=== PATIENT | male | born 1955 | race Caucasian/White ===

== ENCOUNTER 2017-05-09 08:21 | Day surgery (SDC) | payer BC ==
[~2017-05-09 08:21] MED LIST: Lidocaine 1%/Sod Bicarbonate in NS 8.4% 1 ML Syringe PRN; Sodium Chloride 0.9% 10 ML Syringe FLUSH PRN
[2017-05-09] MEDS: Lactated Ringers 1,000 ML IV SCH ×3 (08:50→15:07)
[2017-05-09] MEDS ORDERED: fentaNYL 250 MCG/5 ML SDV ONE (08:53)
[2017-05-09] MEDS ORDERED: Propofol 200 MG/20 ML SDV ONE (08:53)
[2017-05-09] MEDS ORDERED: Lidocaine 1% 6 ML ONE (08:56)
[2017-05-09] MEDS ORDERED: ceFAZolin 1 GM Vial ONE (08:56)
--- NOTE | 2017-05-09 10:00 | PCM.HP ---
H&P History of Present Illness - General Date of Service: 05/09/17 Source of Information: Patient History Limitations: Reports: No Limitations - History of Present Illness Initial Comments - Free Text/Narative: 62 yo M presents for lap umbilical hernia repair, possible inguinal hernia repair. Last seen in office on 04/07. No changes in his health since that time. No questions or concerns. Here w/ . Nausea with oral pain meds after last surgery. - Related Data Allergies/Adverse Reactions: Allergies Allergy/AdvReac Type Severity Reaction Status Date / Time No Known Allergies Allergy Verified 05/06/17 13:02 Home Medications: Home Meds Aspirin 162 mg PO DAILY 05/06/17 [History] Beta-Carotene(A) w/C & E/Min [Prosight] 1 tab PO DAILY 05/06/17 [History] Metoprolol Succinate [Metoprolol Succinate] 12.5 mg PO DAILY 05/06/17 [History] Multivitamin [Multivitamins] 1 tab PO DAILY 05/06/17 [History] Naproxen 500 mg PO BID 05/06/17 [History] Nitroglycerin [IJP: Nitroglycerin] 0.4 mg SL ASDIRECTED PRN 05/06/17 [History] Pantoprazole Sodium [Pantoprazole Sodium] 40 mg PO DAILY 05/06/17 [History] Ubidecarenone [Coq-10] 100 mg PO DAILY 05/06/17 [History] amLODIPine Besylate [Amlodipine Besylate] 2.5 mg PO DAILY 05/06/17 [History] atorvaSTATin Calcium [Atorvastatin Calcium] 80 mg PO DAILY 05/06/17 [History] Past Medical History Cardiovascular History: Reports: CAD, Hypertension, Stents Respiratory History: Reports: Sleep Apnea Gastrointestinal History: Reports: Colon Polyp, Other (See Below) Other Gastrointestinal History: umbilical hernia, heartburn [employer] History: Reports: None Neurological History: Reports: None Psychiatric History: Reports: None Endocrine/Metabolic History: Reports: None Hematologic History: Reports: None Immunologic History: Reports: None Oncologic (Cancer) History: Reports: None Dermatologic History: Reports: None - Past Surgical History Head Surgeries/Procedures: Reports: None HEENT Surgical History: Reports: Oral Surgery Cardiovascular Surgical History: Reports: Other (See Below) Other Cardiovascular Surgeries/Procedures: PCI GI Surgical History: Reports: Colonoscopy, EGD Musculoskeletal Surgical History: Reports: Other (See Below) Other Musculoskeletal Surgeries/Procedures:: R index finger surgery Social & Family History - Tobacco Use Smoking Status *Q: Never Smoker - Recreational Drug Use Recreational Drug Use: No Drug Use in Last 12 Months: No H&P Review of Systems - Review of Systems: Review Of Systems: ROS reveals no pertinent complaints other than HPI. Exam - Exam Exam: See Below - Vital Signs Vital Signs: Last Vital Signs Temp 97.5 F 05/09/17 08:30 Pulse 61 05/09/17 08:30 Resp 18 05/09/17 08:30 BP 156/64 H 05/09/17 08:30 Pulse Ox 97 05/09/17 08:30 Weight: 242 lb - Exam General: Alert, Oriented, Cooperative HEENT: Conjunctiva Clear. No: Scleral Icterus Lungs: Normal Respiratory Effort Cardiovascular: Regular Rate Abdomen: Soft, Hernia (Umbilical - reducible). No: Distention, Guarding, Rigidity, Rebound Skin: Warm, Dry, Intact Neurological: Cranial Nerves Intact, Normal Speech Neuro Extensive - Mental Status: Alert, Oriented x3, Normal Mood/Affect, Normal Cognition Psychiatric: Alert, Normal Affect, Normal Mood - Patient Data Lab Results Last 24 hrs: Laboratory Results - last 24 hr 05/09/17 05/09/17 Range/Units 08:57 08:57 WBC 5.75 (4.23-9.07) K/mm3 RBC 5.03 (4.63-6.08) M/mm3 Hgb 14.9 (13.7-17.5) gm/L Hct 43.3 (40.1-51.0) % MCV 86.1 (79.0-92.2) fl MCH 29.6 (25.7-32.2) pg MCHC 34.4 (32.2-35.5) g/dl RDW Std Deviation 41.2 (35.1-43.9) fL Plt Count 178 (163-337) K/mm3 MPV 9.6 (9.4-12.3) fl Neut % (Auto) 55.7 (34.0-67.9) % Lymph % (Auto) 30.6 (21.8-53.1) % Foster % (Auto) 9.7 (5.3-12.2) % Eos % (Auto) 3.1 (0.8-7.0) Baso % (Auto) 0.7 (0.1-1.2) % Neut # (Auto) 3.20 (1.78-5.38) K/mm3 Lymph # (Auto) 1.76 (1.32-3.57) K/mm3 Foster # (Auto) 0.56 (0.30-0.82) K/mm3 Eos # (Auto) 0.18 (0.04-0.54) K/mm3 Baso # (Auto) 0.04 (0.01-0.08) K/mm3 Sodium 141 (136-145) mEq/L Potassium 3.9 (3.5-5.1) mEq/L Chloride 104 (98-107) mEq/L Carbon Dioxide 26 (21-32) mEq/L Anion Gap 14.9 (5-15) BUN 14 (7-18) mg/dL Creatinine 1.1 (0.7-1.3) mg/dL Est Cr Clr Drug Dosing 77.68 mL/min Estimated GFR (MDRD) > 60 (>60) mL/min BUN/Creatinine Ratio 12.7 L (14-18) Glucose 131 H (80-115) mg/dL Calcium 8.7 (8.5-10.1) mg/dL Total Bilirubin 0.9 (0.2-1.0) mg/dL AST 23 (15-37) U/L ALT 41 (16-63) U/L Alkaline Phosphatase 78 (46-116) U/L Total Protein 7.3 (6.4-8.2) g/dl Albumin 4.0 (3.4-5.0) g/dl Globulin 3.3 gm/dL Albumin/Globulin Ratio 1.2 (1-2) Result Diagrams: 05/09/17 08:57 05/09/17 08:57 *Q Meaningful Use (ADM) - VTE *Q VTE Criteria *Q: - Stroke *Q Stroke Criteria *Q: - AMI *Q AMI Criteria *Q: - Problem List (1) Umbilical hernia SNOMED Code(s): 484292135, 698086366 ICD Code: K42.9 - UMBILICAL HERNIA WITHOUT OBSTRUCTION OR GANGRENE Status: Acute Current Visit: Yes Problem List Initiated/Reviewed/Updated: Yes Orders Last 24hrs: Active Orders 24 hr Category Date Time Status EKG Documentation Completion [RC] ROUTINE Care 05/09/17 08:30 Active Peripheral IV Care [RC] . DIRECTED Care 05/09/17 00:01 Active Verify Patient Consent Obtain [RC] ASDIRECTED Care 05/09/17 00:01 Active Lactated Ringers [Ringers, Lactated] 1,000 ml Med 05/09/17 00:01 Active IV ASDIRECTED Lidocaine 1%/Sod Bicarbonate [Buffered Lidocaine 1% in Med 05/09/17 00:01 Active NS 8.4%] 0.25 ml .XX ONETIME PRN Scopolamine [Transderm-Scop] Med 05/09/17 09:57 Once 1.5 mg TOP ONETIME ONE Sodium Chloride 0.9% [Saline Flush] Med 05/09/17 00:01 Active 10 ml FLUSH ASDIRECTED PRN Medication Administration Instruction [OM.PC] Routine Oth 05/09/17 00:01 Ordered Peripheral IV Insertion Adult [OM.PC] Routine Oth 05/09/17 00:01 Ordered Medication Orders Lactated Ringer's (Ringers, Lactated) 1,000 mls @ 125 mls/hr IV ASDIRECTED [facility] Stop: 05/09/17 23:00 Last Admin: 05/09/17 08:50 Dose: 125 mls/hr Lidocaine/Sodium Bicarbonate (Buffered Lidocaine 1% In Ns 8.4%) 0.25 ml .XX ONETIME PRN PRN Reason: Prior to IV Start Stop: 05/09/17 18:00 Last Admin: 05/09/17 08:49 Dose: 0.25 ml Sodium Chloride (Saline Flush) 10 ml FLUSH ASDIRECTED PRN PRN Reason: Keep Vein Open Stop: 05/09/17 18:00 Assessment/Plan Comment:: 62 yo M with reducible umbilical hernia Plan to proceed with lap umb hernia repair w/ mesh and poss inguinal hernia w/ mesh if indicated.
[2017-05-09] MEDS ORDERED: Scopolamine 1.5 MG Transdermal Patch TOP ONE (10:10)
[2017-05-09] MEDS: Lidocaine 1% with EPINEPHrine 1:100,000 20 ML MDV ONE ×2 (10:39→10:51)
[2017-05-09] MEDS: Bupivacaine 0.5%/EPINEPHrine 1:200,000 50 ML MDV ONE ×2 (10:39→10:49)
--- NOTE | 2017-05-09 10:57 | PCM.PREANE ---
Preanesthetic Assessment - Procedure Proposed Procedure: Lap repair of Umbilical Hernia - Anesthesia/Transfusion/Family Hx Anesthesia History: Prior Anesthesia Without Reaction Family History of Anesthesia Reaction: No - Review of Systems General: No Symptoms Pulmonary: No Symptoms Cardiovascular: No Symptoms Gastrointestinal: No symptoms Neurological: No Symptoms Other: Reports: None - Physical Assessment NPO Status Date: 05/08/17 NPO Status Time: 20:00 O2 Sat by Pulse Oximetry: 97 Respiratory Rate: 18 Vital Signs: Last Vital Signs Temp 36.4 C 05/09/17 08:30 Pulse 61 05/09/17 08:30 Resp 18 05/09/17 08:30 BP 156/64 H 05/09/17 08:30 Pulse Ox 97 05/09/17 08:30 Height: 1.85 m Weight: 109.769 kg ASA Class: 3 Mental Status: Alert & Oriented x3 Airway Class: Mallampati = 3 Dentition: Reports: Implants, Broken Tooth/Teeth, Missing Tooth/Teeth Thyro-Mental Finger Breadths: 3 Mouth Opening Finger Breadths: 2 ROM/Head Extension: Full Lungs: Clear to auscultation, Normal respiratory effort Cardiovascular: Regular Rate, Regular Rhythm, No Murmurs - Lab Values: Laboratory Last Values WBC 5.75 K/mm3 (4.23-9.07) 05/09/17 08:57 RBC 5.03 M/mm3 (4.63-6.08) 05/09/17 08:57 Hgb 14.9 gm/L (13.7-17.5) 05/09/17 08:57 Hct 43.3 % (40.1-51.0) 05/09/17 08:57 MCV 86.1 fl (79.0-92.2) 05/09/17 08:57 MCH 29.6 pg (25.7-32.2) 05/09/17 08:57 MCHC 34.4 g/dl (32.2-35.5) 05/09/17 08:57 RDW Std Deviation 41.2 fL (35.1-43.9) 05/09/17 08:57 Plt Count 178 K/mm3 (163-337) 05/09/17 08:57 MPV 9.6 fl (9.4-12.3) 05/09/17 08:57 Neut % (Auto) 55.7 % (34.0-67.9) 05/09/17 08:57 Lymph % (Auto) 30.6 % (21.8-53.1) 05/09/17 08:57 Conway % (Auto) 9.7 % (5.3-12.2) 05/09/17 08:57 Eos % (Auto) 3.1 (0.8-7.0) 05/09/17 08:57 Baso % (Auto) 0.7 % (0.1-1.2) 05/09/17 08:57 Neut # (Auto) 3.20 K/mm3 (1.78-5.38) 05/09/17 08:57 Lymph # (Auto) 1.76 K/mm3 (1.32-3.57) 05/09/17 08:57 Conway # (Auto) 0.56 K/mm3 (0.30-0.82) 05/09/17 08:57 Eos # (Auto) 0.18 K/mm3 (0.04-0.54) 05/09/17 08:57 Baso # (Auto) 0.04 K/mm3 (0.01-0.08) 05/09/17 08:57 Sodium 141 mEq/L (136-145) 05/09/17 08:57 Potassium 3.9 mEq/L (3.5-5.1) 05/09/17 08:57 Chloride 104 mEq/L (98-107) 05/09/17 08:57 Carbon Dioxide 26 mEq/L (21-32) 05/09/17 08:57 Anion Gap 14.9 (5-15) 05/09/17 08:57 BUN 14 mg/dL (7-18) 05/09/17 08:57 Creatinine 1.1 mg/dL (0.7-1.3) 05/09/17 08:57 Est Cr Clr Drug Dosing 77.68 mL/min 05/09/17 08:57 Estimated GFR (MDRD) > 60 mL/min (>60) 05/09/17 08:57 BUN/Creatinine Ratio 12.7 (14-18) L 05/09/17 08:57 Glucose 131 mg/dL (80-115) H 05/09/17 08:57 Calcium 8.7 mg/dL (8.5-10.1) 05/09/17 08:57 Total Bilirubin 0.9 mg/dL (0.2-1.0) 05/09/17 08:57 AST 23 U/L (15-37) 05/09/17 08:57 ALT 41 U/L (16-63) 05/09/17 08:57 Alkaline Phosphatase 78 U/L (46-116) 05/09/17 08:57 Total Protein 7.3 g/dl (6.4-8.2) 05/09/17 08:57 Albumin 4.0 g/dl (3.4-5.0) 05/09/17 08:57 Globulin 3.3 gm/dL 05/09/17 08:57 Albumin/Globulin Ratio 1.2 (1-2) 05/09/17 08:57 - Imaging/EKG Impressions: Sinus rhythm with RBBB - Allergies Allergies/Adverse Reactions: Allergies Allergy/AdvReac Type Severity Reaction Status Date / Time No Known Allergies Allergy Verified 05/06/17 13:02 - Anesthesia Plan Beta Nano: Metoprolol Med Last Dose Date: 05/09/17 Med Last Dose Time: 07:00 - Acknowledgements Anesthesia Type Planned: General Anesthesia Pt an Appropriate Candidate for the Planned Anesthesia: Yes Alternatives and Risks of Anesthesia Discussed w Pt/Guardian: Yes Pt/Guardian Understands and Agrees with Anesthesia Plan: Yes PreAnesthesia Questionnaire Cardiovascular History: Reports: CAD, Hypertension, Stents (2008,2010) Respiratory History: Reports: Sleep Apnea Gastrointestinal History: Reports: Colon Polyp, Other (See Below) Other Gastrointestinal History: umbilical hernia, heartburn 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: 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: 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 Neurological History: Reports: None Psychiatric History: Reports: None Endocrine/Metabolic History: Reports: Obesity/BMI 30+ Hematologic History: Reports: None Immunologic History: Reports: None Oncologic (Cancer) History: Reports: None Dermatologic History: Reports: None - Past Surgical History Head Surgeries/Procedures: Reports: None HEENT Surgical History: Reports: Oral Surgery Cardiovascular Surgical History: Reports: Other (See Below) Other Cardiovascular Surgeries/Procedures: PCI GI Surgical History: Reports: Colonoscopy, EGD Musculoskeletal Surgical History: Reports: Other (See Below) Other Musculoskeletal Surgeries/Procedures:: R index finger surgery - SUBSTANCE USE Smoking Status *Q: Former Smoker (quit 1985 bafter 15 pack year hx) Tobacco Use Within Last Twelve Months: No Second Hand Smoke Exposure: No Days Per Week of Alcohol Use: 0 (reports occasional alcohol use. < 1 drink per week) Recreational Drug Use History: No - HOME MEDS Home Medications: Home Meds Aspirin 162 mg PO DAILY 05/06/17 [History] Beta-Carotene(A) w/C & E/Min [Prosight] 1 tab PO DAILY 05/06/17 [History] Metoprolol Succinate [Metoprolol Succinate] 12.5 mg PO DAILY 05/06/17 [History] Multivitamin [Multivitamins] 1 tab PO DAILY 05/06/17 [History] Naproxen 500 mg PO BID 05/06/17 [History] Nitroglycerin [IJP: Nitroglycerin] 0.4 mg SL ASDIRECTED PRN 05/06/17 [History] Pantoprazole Sodium [Pantoprazole Sodium] 40 mg PO DAILY 05/06/17 [History] Ubidecarenone [Coq-10] 100 mg PO DAILY 05/06/17 [History] amLODIPine Besylate [Amlodipine Besylate] 2.5 mg PO DAILY 05/06/17 [History] atorvaSTATin Calcium [Atorvastatin Calcium] 80 mg PO DAILY 05/06/17 [History] - CURRENT (IN HOUSE) MEDS Current Meds: Current Medications Lactated Ringer's (Ringers, Lactated) 1,000 mls @ 125 mls/hr IV ASDIRECTED [facility] Stop: 05/09/17 23:00 Last Admin: 05/09/17 08:50 Dose: 125 mls/hr Lidocaine/Sodium Bicarbonate (Buffered Lidocaine 1% In Ns 8.4%) 0.25 ml .XX ONETIME PRN PRN Reason: Prior to IV Start Stop: 05/09/17 18:00 Last Admin: 05/09/17 08:49 Dose: 0.25 ml Sodium Chloride (Saline Flush) 10 ml FLUSH ASDIRECTED PRN PRN Reason: Keep Vein Open Stop: 05/09/17 18:00 Discontinued Medications Bupivacaine HCl/Epinephrine Bitart (Marcaine 0.5%/Epinephrine 1:200,000) Confirm Administered Dose 50 ml .ROUTE .STK-MED ONE Stop: 05/09/17 08:16 Cefazolin Sodium (Ancef) Confirm Administered Dose 2 gm .ROUTE .STK-MED ONE Stop: 05/09/17 08:57 Fentanyl (Sublimaze) Confirm Administered Dose 250 mcg .ROUTE .STK-MED ONE Stop: 05/09/17 08:54 Lidocaine HCl (Xylocaine-Mpf 1%) Confirm Administered Dose 6 mls @ as directed .ROUTE .STK-MED ONE Stop: 05/09/17 08:57 Lidocaine/Epinephrine (Xylocaine 1% With Epinephrine 1:100,000) Confirm Administered Dose 20 ml .ROUTE .STK-MED ONE Stop: 05/09/17 08:16 Propofol (Diprivan 20 Ml) Confirm Administered Dose 200 mg .ROUTE .STK-MED ONE Stop: 05/09/17 08:54 Scopolamine (Transderm-Scop) 1.5 mg TOP ONETIME ONE Stop: 05/09/17 10:11 Last Admin: 05/09/17 10:10 Dose: 1.5 mg
[2017-05-09] MEDS ORDERED: Lactated Ringers 1,000 ML ONE (11:16)
[2017-05-09] MEDS ORDERED: Ondansetron 4 MG/2 ML SDV ONE (11:16)
[2017-05-09] MEDS ORDERED: Neostigmine Methylsulfate 1 MG/ML 5 ML Syringe ONE (11:21)
--- NOTE | 2017-05-09 11:26 | PCM.OPNOTE ---
- General Post-Op/Procedure Note Date of Surgery/Procedure: 05/09/17 Operative Procedure(s): Laparoscopic hybrid umbilical hernia repair with mesh ( IPOM) Pre Op Diagnosis: Umbilical hernia Post-Op Diagnosis: Same Anesthesia Technique: General ET tube, Local (39 mL) Primary Surgeon: Ayanna Tai Anesthesia Provider: Blaine Cadet Fluid Replacement, Intraop: 1,450 (mL crystalloid ) Output, Urine Amount: 280 EBL in mLs: 5 Complications: None Condition: Good Free Text/Narrative:: IMPLANTED DEVICES: Ventralight ST 15.2 cm diomede (6" round) INDICATION FOR PROCEDURE: The patient is a 62-year-old man, who sees both Dr. Kobi Ramirez and MARIA LUISA Younger, and presents for repair of umbilical hernia. I discussed with the patient laparoscopic umbilical herniorrhaphy with mesh and associated risks of the procedure. The patient found these risks acceptable and agreed to proceed. DESCRIPTION OF PROCEDURE: The patient was taken to the operating room and placed in the supine position. Sequential compressive devices were placed on the bilateral lower extremities. Preoperative antibiotics were administered as per protocol. After induction of general endotracheal anesthesia a coude Sun catheter was placed with drainage of clear yellow urine. The patient's arms were tucked at their sides bilaterally, pressure points were adequately padded. The abdomen was then prepped and draped in usual sterile fashion and an Ioban was applied. A stab incision was then made using a scalpel in the left upper quadrant after first injecting local anesthetic. A Veress needle was introduced into the abdomen. A water drop test was performed. The abdomen was then insufflated to 15 mm of mercury. A small left upper quadrant trocar incision was made. A 5 mm trocar was introduced into the abdomen using the Visiport technique. The abdomen was surveyed. A 3-3.5 cm defect was noted at the umbilicus. There was no incarcerated omentum or bowel present within the defect. There was no evidence of inguinal hernia on inspection of the lower abdomen. An additional 5 mm trocar was then placed in the left lower quadrant under direct visualization. A harmonic scalpel was then used to take down a portion of the falciform ligament to facilitate placement of the mesh. A curvilinear infraumbilical incision was then made using a scalpel. The umbilical skin was taken off of the underlying hernia defect. The selected mesh, a 6 inch round ( 15.2 cm) Ventralight ST Echo PS, was selected. This was rolled and placed through the hernia defect. The hernia defect was then primarily reapproximated using a running 0 Vicryl suture. Using the laparoscopic suture passer the positioning system tubing was grasped and engaged. The mesh was appropriately positioned and secured to the anterior abdominal wall using an Ethicon SecureStrap absorbable tacker. The defect was more than amply covered. The positioning system was deflated and removed in its entirety. The left lower quadrant trocar was removed with no evidence of bleeding. The abdomen was then desufflated and the left upper quadrant trocar was removed. The umbilicus was tacked down to the anterior abdominal wall fascia using a 3-0 Vicryl suture. The deeper tissues at the umbilical incision were reapproximated using a 3-0 Vicryl suture. The umbilical skin incision was closed using a running 4-0 Monocryl subcuticular suture. The trocar insertion sites were then closed using 4-0 Monocryl suture. Dermabond was placed over the skin incisions. A cotton ball and Tegaderm were placed at the umbilicus for compression. The sun catheter was removed without difficulty. The patient was awakened from anesthesia, extubated, and transferred to the recovery room in stable condition having tolerated the procedure well. An abdominal binder was applied prior to leaving the operating room. Sponge and instrument counts were reported as correct as the end of the case. POSTOPERATIVE PLAN: I discussed my intraoperative findings and post-operative recommendations with the patient's . The patient will be allowed to further recover and once they are awakened fully from anesthesia may be discharged home this afternoon. The patient is not to lift greater than ten pounds for the next six weeks. They are to call the office with any questions or concerns regarding their incision sites. Prescriptions for Percocet 5/325mg, Zofran ODT 4mg, and Senna-S were provided. They may shower tomorrow. They may wear the abdominal binder for comfort.
[2017-05-09] MEDS ORDERED: fentaNYL 100 MCG/2 ML SDV IVPUSH PRN (11:30)
--- NOTE | 2017-05-09 11:35 | PCM.POSTAN ---
POST ANESTHESIA ASSESSMENT - MENTAL STATUS Mental Status: somnolent - VITAL SIGNS Pulse Rate: 85 SaO2: 98 Resp Rate: 15 Blood Pressure: 195/95 Temperature: 37.2 C - RESPIRATORY Respiratory Status: respiratory rate WNL, airway patent, O2 saturation stable - CARDIOVASCULAR CV Status: pulse rate WNL, elevated blood pressure - GASTROINTESTINAL GI Status: no symptoms - PAIN Pain Score: 2 - POST OP HYDRATION Hydration Status: adequate & stable
--- NOTE | 2017-05-09 12:08 | PCM48HPAN ---
Post Anesthesia Note - EVALUATION WITHIN 48HRS OF ANESTHETIC Vital Signs in Normal Range: Yes Patient Participated in Evaluation: Yes Respiratory Function Stable: Yes Airway Patent: Yes Cardiovascular Function Stable: Yes Hydration Status Stable: Yes Pain Control Satisfactory: Yes Nausea and Vomiting Control Satisfactory: Yes Mental Status Recovered: Yes
[2017-05-09] MEDS ORDERED: Ondansetron 4 MG/2 ML SDV IVPUSH ONE (12:35)
[2017-05-09] MEDS ORDERED: Acetaminophen/oxyCODONE 325-5 MG Tab PO ONE (12:45)
[2017-05-09] MEDS ORDERED: Haloperidol Lactate 5 MG/ML SDV ONE (14:47)
[2017-05-09] MEDS ORDERED: Haloperidol Lactate 5 MG/ML SDV IVPUSH ONE (14:49)
[2017-05-09] MEDS ORDERED: Ondansetron 4 MG/2 ML SDV IVPUSH PRN (16:17)
[2017-05-09] MEDS: Acetaminophen/oxyCODONE 325-5 MG Tab PO PRN (18:22)
[2017-05-10] MEDS: Acetaminophen/oxyCODONE 325-5 MG Tab PO PRN ×2 (03:15→08:34)
[2017-05-10 05:36] VITALS: BP 125/76
== END 2017-05-10 08:51 | disposition home or self-care (01) ==
LOC: JD.SDS 08:21
PROVIDERS: ATTEND Surgery
DX: K42.9 Umbilical hernia without obstruction or gangrene (principal); I25.10 Atherosclerotic heart disease of native coronary artery without angina pectoris; I10 Essential (primary) hypertension; E78.00 Pure hypercholesterolemia, unspecified; K21.9 Gastro-esophageal reflux disease without esophagitis; G47.30 Sleep apnea, unspecified; Z79.82 Long term (current) use of aspirin; Z79.899 Other long term (current) drug therapy; Z98.890 Other specified postprocedural states; Z87.891 Personal history of nicotine dependence
CPT/HCPCS: 36415; 49652; 80053; 82962; 85025; 93005; A9270; C1781; J0690; J1630; J2405; J2710; J3010; J7120; 00750; J2704

== ENCOUNTER 2020-04-03 05:16 | Emergency (ER) | payer MEDICARE, BC ==
[2020-04-03] MEDS ORDERED: Lactated Ringers 1,000 ML IV ONE (05:43)
[2020-04-03] MEDS ORDERED: Loperamide 2 MG Cap PO STA (05:44)
--- NOTE | 2020-04-03 05:50 | EDM.PDOC ---
<Zia Kamara Mell - Last Filed: 04/03/20 06:57> ED HPI GENERAL MEDICAL PROBLEM - General Chief Complaint: General Stated Complaint: [facility] Time Seen by Provider: 04/03/20 05:26 Source of Information: Reports: Patient, Family () History Limitations: Reports: No Limitations - History of Present Illness INITIAL COMMENTS - FREE TEXT/NARRATIVE: Mr. Salgado is a pleasant 65-year-old man with a past medical history significant for coronary artery disease, status post a "mild" VT in 2018, with 3 coronary stents, who is now brought to the ED by EMS after having 2 syncopal episodes. Almost all of the patient's history is provided by his , although the patient is neurologically intact, and I do not see any immediate reason why he could have not given the history himself, nevertheless, according to the patient's , the patient has been having some generalized abdominal cramps with occasional diarrhea for about 1 month. He saw his PCP about 3 weeks ago, and an abdominal x-ray may have indicated some constipation. He is scheduled for a colonoscopy. The patient then developed nausea, diminished appetite, and watery, non-bloody diarrhea this past Tuesday night, 04/01/2020. No recent fever. He has not taken any yjki-rro-[id number] or home remedies to treat any of his symptoms. He got up to go to the bathroom this morning, and suffered a syncopal episode. The patient's called 911, but by the time they got there, he had recovered. They recommended that he go to the ER, but as he was preparing to go , he said that he needed to return to the bathroom, but when he attempted to do so, he had a second syncopal episode. He was not injured in either syncopal episode. He states that just preceding both episodes, he felt very nauseated, although he never vomited. He expressly denies having any associated chest pain , palpitations, dyspnea, or diaphoresis. EMS established an IV and gave the patient IV Zofran. Here in the ED, the patient is found to be hemodynamically stable, afebrile, saturating 95% on room air. Other than the abdominal symptoms already mentioned, the patient denies recent fever, chills, sore throat, ear pain, nasal or sinus congestion, cough, dyspnea , chest pain, palpitations, vomiting, constipation, urinary symptoms, recent weight gain or weight loss, recent bloody bowel movements or black bowel movements, recent joint aches, headaches, or rashes. The patient's PCP is Dr. Kobi Ramirez. His cardiology midlevel is Swapna Sims NP. - Related Data Allergies Allergy/AdvReac Type Severity Reaction Status Date / Time No Known Allergies Allergy Verified 04/03/20 05:24 Home Meds: Home Meds Aspirin 325 mg PO DAILY 05/06/17 [History] Metoprolol Succinate 50 mg PO DAILY 05/06/17 [History] Pantoprazole Sodium 40 mg PO DAILY 05/06/17 [History] atorvaSTATin Calcium [Atorvastatin Calcium] 80 mg PO DAILY 05/06/17 [History] Clopidogrel [Plavix] 75 mg PO DAILY 07/04/17 [History] Ezetimibe 10 mg PO DAILY 04/03/20 [History] Losartan [Cozaar] 50 mg PO DAILY 04/03/20 [History] Ondansetron [Zofran ODT] 1 tab PO Q8H PRN #10 tab.dis 04/03/20 [Rx] Ubidecarenone [Coq-10] 100 mg PO DAILY 04/03/20 [History] Past Medical History Cardiovascular History: Reports: CAD, High Cholesterol, Hypertension, VT (x 1, 2018) Gastrointestinal History: Reports: Colon Polyp, GERD Endocrine/Metabolic History: Reports: Obesity/BMI 30+ - Past Surgical History HEENT Surgical History: Reports: Oral Surgery (wisdom teeth extracted) Cardiovascular Surgical History: Reports: Coronary Artery Stent (x 3) GI Surgical History: Reports: Colonoscopy (x 1), EGD (x 1), Hernia, Abdominal ( periumbilical) Musculoskeletal Surgical History: Reports: Amputation (partial, 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 ED EXAM, GENERAL - Physical Exam Exam: See Below Exam Limited By: No Limitations General Appearance: Alert, WD/WN, No Apparent Distress (lying on gurney) Eye Exam: Bilateral Eye: EOMI, Normal Inspection, PERRL Ears: Normal External Exam, Hearing Grossly Normal Nose: Normal Inspection Throat/Mouth: Normal Inspection, Normal Lips, Normal Voice, No Airway Compromise Head: Atraumatic, Normocephalic Neck: Normal Inspection, Full Range of Motion Respiratory/Chest: No Respiratory Distress, Lungs Clear, Normal Breath Sounds, No Accessory Muscle Use Cardiovascular: Normal Peripheral Pulses, Regular Rate, Rhythm, No Edema, No Gallop, No JVD, No Murmur, No Rub Peripheral Pulses: 2+: Radial (L), Radial (R) GI/Abdominal: Normal Bowel Sounds, Soft, Non-Tender, No Organomegaly, No Distention, No Abnormal Bruit, No Mass (Male) Exam: Deferred Rectal (Males) Exam: Deferred Back Exam: Normal Inspection, Full Range of Motion, NT Extremities: Normal Inspection, Normal Range of Motion, No Pedal Edema, Normal Capillary Refill Neurological: Alert, Oriented, CN II-XII Intact, Normal Cognition, No Motor/ Sensory Deficits Psychiatric: Normal Affect Skin Exam: Warm, Dry, Intact, Normal Color, No Rash EKG INTERPRETATION EKG Date: 04/03/20 Time: 06:01 Rhythm: NSR Rate (Beats/Min): 63 [place]: Normal P-Wave: Present (1st degree AVB) QRS: Normal ST-T: Normal QT: Normal Comparison: NA - No Prior EKG Course - Vital Signs Last Recorded V/S: Last Vital Signs Temp 36.4 C 04/03/20 05:20 Pulse 63 04/03/20 05:20 Resp 17 04/03/20 05:20 BP 130/81 04/03/20 05:20 Pulse Ox 95 04/03/20 05:20 Orthostatic Blood Pressure [ 117/78 Standing] Orthostatic Blood Pressure [ 128/61 Sitting] Orthostatic Blood Pressure [ 134/72 Supine] - Orders/Labs/Meds Orders: Active Orders 24 hr Category Date Time Status EKG Documentation Completion [RC] STAT Care 04/03/20 05:43 Active Orthostatic Vital Signs [RC] STAT Care 04/03/20 05:43 Active Sodium Chloride 0.9% [Normal Saline] 100 ml Med 04/03/20 07:45 Active IV ASDIRECTED Medication Orders Sodium Chloride (Normal Saline) 100 mls @ 60 mls/hr IV ASDIRECTED JAVIER Stop: 04/03/20 12:00 Last Admin: 04/03/20 07:58 Dose: 60 mls/hr Labs: Laboratory Tests 04/03/20 04/03/20 04/03/20 Range/Units 05:58 05:58 05:58 WBC 13.92 H (4.23-9.07) K/mm3 RBC 4.91 (4.63-6.08) M/mm3 Hgb 14.7 (13.7-17.5) gm/dl Hct 42.9 (40.1-51.0) % MCV 87.4 (79.0-92.2) fl MCH 29.9 (25.7-32.2) pg MCHC 34.3 (32.2-35.5) g/dl RDW Std Deviation 41.8 (35.1-43.9) fL Plt Count 148 L (163-337) K/mm3 MPV 9.9 (9.4-12.3) fl Neutrophils % (Manual) 88 H (40-60) % Band Neutrophils % 0 (0-10) % Lymphocytes % (Manual) 4 L (20-40) % Atypical Lymphs % 0 % Monocytes % (Manual) 8 (2-10) % Eosinophils % (Manual) 0 L (0.8-7.0) % Basophils % (Manual) 0 L (0.2-1.2) Toxic Granulation 1+ slight Platelet Estimate Adequate RBC Morph Comment Normal D-Dimer, Quantitative 1.69 H (0.19-0.50) mg/L Sodium 139 (136-145) mEq/L Potassium 4.0 (3.5-5.1) mEq/L Chloride 101 (98-107) mEq/L Carbon Dioxide 28 (21-32) mEq/L Anion Gap 14.0 (5-15) BUN 15 (7-18) mg/dL Creatinine 1.2 (0.7-1.3) mg/dL Est Cr Clr Drug Dosing 68.43 mL/min Estimated GFR (MDRD) > 60 (>60) mL/min BUN/Creatinine Ratio 12.5 L (14-18) Glucose 152 H (80-115) mg/dL Calcium 8.2 L (8.5-10.1) mg/dL Magnesium 1.7 L (1.8-2.4) mg/dl Total Bilirubin 1.2 H (0.2-1.0) mg/dL AST 23 (15-37) U/L ALT 30 (16-63) U/L Alkaline Phosphatase 64 (46-116) U/L Troponin I < 0.017 (0.00-0.056) ng/mL Total Protein 6.9 (6.4-8.2) g/dl Albumin 3.6 (3.4-5.0) g/dl Globulin 3.3 gm/dL Albumin/Globulin Ratio 1.1 (1-2) Meds: Medications Generic Name Dose Route Start Last Admin Trade Name Freq PRN Reason Stop Dose Admin Sodium Chloride 100 mls @ 60 mls/hr 04/03/20 07:45 04/03/20 07:58 Normal Saline IV 04/03/20 12:00 60 mls/hr ASDIRECTED JAVIER Administration Discontinued Medications Generic Name Dose Route Start Last Admin Trade Name Freq PRN Reason Stop Dose Admin Lactated Ringer's 1,000 mls @ 999 mls/hr 04/03/20 05:43 04/03/20 05:55 Ringers, Lactated IV 04/03/20 06:43 999 mls/hr .BOLUS ONE Administration Iopamidol 100 ml 04/03/20 07:37 04/03/20 07:58 Isovue-370 (76%) IVPUSH 04/03/20 07:38 100 ml ONETIME ONE Administration Loperamide HCl 4 mg 04/03/20 05:44 04/03/20 05:55 Imodium PO 04/03/20 05:45 4 mg ONETIME STA Administration Sodium Chloride 10 ml 04/03/20 07:37 04/03/20 07:58 Saline Flush FLUSH 04/03/20 07:38 10 ml ONETIME ONE Administration - Re-Assessments/Exams Free Text/Narrative Re-Assessment/Exam: 04/03/20 05:45 As above, the patient has had gastroenteritis for the past 36 hours, approximately, then suffered 2 syncopal episodes this morning. Here in the ED, he is neurologically intact. I suspect that he is orthostatic. I have ordered a work-up that includes blood work, orthostatics, and an ECG. In the meantime, the patient will be given IV fluid and oral loperamide. He was given IV Zofran per EMS. 04/03/20 06:11 Surprisingly, the patient does not quite meet criterion for orthostasis. Nevertheless, he is receiving IV fluid. 04/03/20 07:11 The patient's CBC is remarkable for a WBC count elevated at 13.92, but with 0% bandemia. His platelets are depressed at 148,000, with the remainder of his CBC being unremarkable. His CMP is remarkable for a blood glucose modestly elevated at 152, with the remainder of his CMP being unremarkable. His magnesium level is slightly depressed at 1.7. His troponin is undetectably low. Case discussed with Dr. Moise, and care of the patient turned over to him at this time, for D-dimer results and disposition, for change of shift. Departure - Departure Disposition: Home, Self-Care 01 Condition: Good Clinical Impression: Syncope, Gastroenteritis - Discharge Information *PRESCRIPTION DRUG MONITORING PROGRAM REVIEWED*: Not Applicable *COPY OF PRESCRIPTION DRUG MONITORING REPORT IN PATIENT MISAEL: Not Applicable Prescriptions: Ondansetron [Zofran ODT] 1 tab PO Q8H PRN #10 tab.dis PRN Reason: Nausea/Vomiting Referrals: Kobi Ramirez MD [Primary Care Provider] - Swapna Sims NP [Ordering Only Provider] - Forms: ED Department Discharge Additional Instructions: You were seen in the emergency room after passing out twice, with several days of nausea and watery diarrhea. Work-up in the ER included blood work, positional blood pressure checks, and an ECG. Your work-up found that you were somewhat dehydrated, likely as a result of the diarrhea and not drinking enough fluid. The remainder of your work-up was unremarkable. You have not suffered a heart attack. You you do not have a blood clot in your lungs. There is no suggestion of a significant infection. The cause of your passing out was most likely due to being dry, however, it could also have been due to vagal syncope as result of your nausea. A prescription for the anti-nausea medicine Zofran has been sent to the [place] pharmacy located in the [facility]. You may dissolve 1 tablet of Zofran on your tongue up to every 8 hours, as needed for nausea/vomiting. Stay adequately hydrated. Gatorade or Powerade are best. If you are hungry, eat a bland diet, such as rice, oatmeal, or toast. Chicken noodle soup with saltine crackers is an excellent choice. For diarrhea, we recommend that you take ubat-oes-gqydujp loperamide (Imodium), 1 tablet (2 mg) after each loose bowel movement, to a maximum of 8 tablets (16 mg), as directed on the label. We recommend that you follow-up with your PCP, Dr. Kobi Ramirez, at the next available appointment. If any other problems, please do not hesitate to return to the ER. Sepsis Event Note - Evaluation Sepsis Screening Result: No Definite Risk - Focused Exam Vital Signs: Vital Signs Temp Pulse Resp BP Pulse Ox 04/03/20 05:20 36.4 C 63 17 130/81 95 Date Exam was Performed: 04/03/20 Time Exam was Performed: 06:57 <Trent Moise - Last Filed: 04/03/20 08:32> Course - Re-Assessments/Exams Free Text/Narrative Re-Assessment/Exam: 04/03/20 07:30 Assumed care at change of shift the patient's d-dimer is elevated at 1.6. We will proceed with CTA 04/03/20 08:[address] was negative for PE however the smaller distal subsegmental pulmonary vessels could not be fully visualized and therefore PE in these areas could not be excluded. Patient does not have any chest discomfort and I think it is unlikely that he has a PE. I did discuss these findings with the patient and if his symptoms persist this may need to be considered again. Departure - Departure Time of Disposition: 08:31 Sepsis Event Note - Focused Exam Date Exam was Performed: 04/03/20 Time Exam was Performed: 08:29
[2020-04-03] MEDS ORDERED: Sodium Chloride 0.9% 10 ML Syringe FLUSH ONE (07:37)
[2020-04-03] MEDS ORDERED: Iopamidol 755 Mg/ML 100 ML Bottle IVPUSH ONE (07:37)
[2020-04-03] MEDS ORDERED: Sodium Chloride 0.9% 100 ML IV SCH (07:45)
--- NOTE | 2020-04-03 08:21 | CT ---
CT chest Technique: Multiple axial sections through the chest were obtained. Intravenous contrast was utilized. Study performed as a pulmonary antegrade protocol. Findings: Pulmonary arteries are moderately well-opacified. No filling defects are seen within the main or segmental branches to indicate pulmonary emboli. Proximal subsegmental pulmonary arteries show no pulmonary embolism. Comments about the very distal subsegmental pulmonary arteries cannot be made. Aorta shows no aneurysm. Fairly prominent coronary artery calcification is seen. No pericardial thickening is seen. Mediastinum and hilar regions show no adenopathy. Visualized upper abdominal structures shows no discrete abnormality. Lung window settings were reviewed. No acute parenchymal change is appreciated. No pleural effusions are noted. Bone window settings were reviewed. Mild degenerative change is scattered within the spine. No acute osseous finding is seen. Impression: 1. Pulmonary arteries show no evidence of pulmonary embolism within the main, segmental or proximal subsegmental branches. Smaller distal subsegmental pulmonary embolic could be missed. 2. Fairly prominent coronary artery calcification. 3. Other findings believed to be nonacute as described above. Diagnostic code #2 This report was dictated in MDT
[2020-04-03 08:52] VITALS: BP 137/77; PULSE 68
== END 2020-04-03 08:44 | disposition home or self-care (01) ==
LOC: JD.ED 05:16
DX: R55 Syncope and collapse (principal); K52.9 Noninfective gastroenteritis and colitis, unspecified; I25.10 Atherosclerotic heart disease of native coronary artery without angina pectoris; E78.00 Pure hypercholesterolemia, unspecified; I10 Essential (primary) hypertension; I25.2 Old myocardial infarction; K21.9 Gastro-esophageal reflux disease without esophagitis; E66.9 Obesity, unspecified; Z68.32 Body mass index [BMI] 32.0-32.9, adult; Z95.5 Presence of coronary angioplasty implant and graft; Z79.82 Long term (current) use of aspirin; Z79.02 Long term (current) use of antithrombotics/antiplatelets; Z79.899 Other long term (current) drug therapy; Z87.891 Personal history of nicotine dependence
CPT/HCPCS: 36415; 71275; 80053; 83735; 84484; 85007; 85027; 85379; 93005; 96360; 96361; 99285; A9270; J7050; J7120; Q9967; 93010; 99283

== ENCOUNTER 2020-04-05 11:57 | Emergency (ER) | payer MEDICARE, BC ==
--- NOTE | 2020-04-05 12:56 | EDM.PDOC ---
ED HPI GENERAL MEDICAL PROBLEM - General Chief Complaint: Gastrointestinal Problem Stated Complaint: NAUSEA AND DIARRHEA NOT BETTER Time Seen by Provider: 04/05/20 12:56 - History of Present Illness INITIAL COMMENTS - FREE TEXT/NARRATIVE: 65-year-old male presents the emergency room with continued nausea vomiting and diarrhea. Patient was seen a couple days ago here with syncopal episodes secondary to dehydration from acute gastroenteritis and possibly a vagal reaction. Patient was discharged with Zofran every 8 hours he is probably used 2 of them since he left. But he is not doing any better at this time. He denies fevers or chills as small volume loose runny stools frequently continued nausea little vomiting. And complains of abdominal discomfort and cramps. The patient is on Protonix and this does pretty well as far as preventing reflux. Patient has coronary artery disease. His last work-up including a CTA was not suggestive anything other than acute gastroenteritis with 2 episodes of syncope. He denies a cough or shortness of breath no chest pain or chest pressure. Treatments DISK OPERATOR: Reports: Other (see below) Other Treatments DISK OPERATOR: zofran - Related Data Allergies Allergy/AdvReac Type Severity Reaction Status Date / Time No Known Allergies Allergy Verified 04/05/20 12:29 Home Meds: Home Meds Aspirin 325 mg PO DAILY 05/06/17 [History] Metoprolol Succinate 50 mg PO DAILY 05/06/17 [History] Pantoprazole Sodium 40 mg PO DAILY 05/06/17 [History] atorvaSTATin Calcium [Atorvastatin Calcium] 80 mg PO DAILY 05/06/17 [History] Clopidogrel [Plavix] 75 mg PO DAILY 07/04/17 [History] Ezetimibe 10 mg PO DAILY 04/03/20 [History] Losartan [Cozaar] 50 mg PO DAILY 04/03/20 [History] Ondansetron [Zofran ODT] 1 tab PO Q8H PRN #10 tab.dis 04/03/20 [Rx] Ubidecarenone [Coq-10] 100 mg PO DAILY 04/03/20 [History] Ciprofloxacin [Ciprofloxacin HCl] 500 mg PO Q12H #20 tab 04/05/20 [Rx] Hyoscyamine Sulfate [Levsin-Sl] 0.125 mg SL Q4H PRN #15 tab.subl 04/05/20 [Rx] Ondansetron [Zofran ODT] 4 mg PO Q6H PRN #16 tab.dis 04/05/20 [Rx] metroNIDAZOLE [Flagyl] 500 mg PO Q8H #30 tab 04/05/20 [Rx] Past Medical History Cardiovascular History: Reports: CAD, High Cholesterol, Hypertension, [place] Respiratory History: Reports: Sleep Apnea Gastrointestinal History: Reports: Colon Polyp, GERD Other Gastrointestinal History: umbilical hernia, heartburn WOOD [employer] BL[employer]ER History: Reports: None Neurological History: Reports: None Psychiatric History: Reports: None Endocrine/Metabolic History: Reports: Obesity/BMI 30+ Hematologic History: Reports: None Immunologic History: Reports: None Oncologic (Cancer) History: Reports: None Dermatologic History: Reports: None - Past Surgical History Head Surgeries/Procedures: Reports: None HEENT Surgical History: Reports: Oral Surgery Cardiovascular Surgical History: Reports: Coronary Artery Stent GI Surgical History: Reports: Colonoscopy, EGD, Hernia, Abdominal Musculoskeletal Surgical History: Reports: Amputation Social & Family History - Tobacco Use Smoking Status *Q: Former Smoker Used Tobacco, but Quit: Yes Month/Year Tobacco Last Used: 1979 - Caffeine Use Caffeine Use: Reports: None - Recreational Drug Use Recreational Drug Use: No - Living Situation & Occupation Living situation: Reports: , with Spouse, with Family (Daughter) Occupation: Employed ([employer]) ED ROS GENERAL - Review of Systems Review Of Systems: See Below Constitutional: Reports: Weakness, Fatigue, Decreased Appetite HEENT: Reports: No Symptoms Respiratory: Reports: No Symptoms Cardiovascular: Reports: No Symptoms GI/Abdominal: Reports: Abdominal Pain, Diarrhea, Nausea, Vomiting : Reports: No Symptoms Musculoskeletal: Reports: No Symptoms Skin: Reports: No Symptoms Neurological: Reports: No Symptoms Psychiatric: Reports: No Symptoms Hematologic/Lymphatic: Reports: No Symptoms Immunologic: Reports: No Symptoms ED EXAM, GI/ABD - Physical Exam Exam: See Below Exam Limited By: No Limitations General Appearance: Alert, No Apparent Distress Head: Atraumatic, Normocephalic Neck: Normal Inspection, Supple, Non-Tender, Full Range of Motion. No: Lymphadenopathy (L), Lymphadenopathy (R) Respiratory/Chest: No Respiratory Distress, Lungs Clear, Normal Breath Sounds Cardiovascular: Regular Rate, Rhythm, No Edema, No Murmur GI/Abdominal Exam: Normal Bowel Sounds, Soft, Non-Tender, No Organomegaly, No Mass. No: Guarding, Rigid, Rebound Back Exam: Normal Inspection. No: CVA Tenderness (L), CVA Tenderness (R) Extremities: Normal Inspection, No Pedal Edema Neurological: Alert, Oriented, Normal Cognition Course - Vital Signs Last Recorded V/S: Last Vital Signs Temp 36.1 C 04/05/20 12:24 Pulse 64 04/05/20 12:24 Resp 18 04/05/20 12:24 BP 145/95 H 04/05/20 12:24 Pulse Ox 98 04/05/20 12:24 Orthostatic Blood Pressure [ 141/77 Standing] Orthostatic Blood Pressure [ 149/79 Supine] - Orders/Labs/Meds Orders: Active Orders 24 hr Category Date Time Status Abdomen 2V AP Flat Upright [CR] Stat Exams 04/05/20 13:22 Taken Abdomen Pelvis w Cont [CT] Stat Exams 04/05/20 14:46 Taken Sodium Chloride 0.9% [Saline Flush] Med 04/05/20 16:18 Active 10 ml FLUSH ONETIME PRN Medication Orders Sodium Chloride (Saline Flush) 10 ml FLUSH ONETIME PRN PRN Reason: Keep Vein Open Last Admin: 04/05/20 16:32 Dose: 10 ml Labs: Laboratory Tests 04/05/20 04/05/20 Range/Units 13:40 13:40 WBC 7.39 (4.23-9.07) K/mm3 RBC 4.71 (4.63-6.08) M/mm3 Hgb 14.1 (13.7-17.5) gm/dl Hct 40.9 (40.1-51.0) % MCV 86.8 (79.0-92.2) fl MCH 29.9 (25.7-32.2) pg MCHC 34.5 (32.2-35.5) g/dl RDW Std Deviation 40.5 (35.1-43.9) fL Plt Count 175 (163-337) K/mm3 MPV 9.3 L (9.4-12.3) fl Neut % (Auto) 58.4 (34.0-67.9) % Lymph % (Auto) 18.3 L (21.8-53.1) % Stone % (Auto) 20.8 H (5.3-12.2) % Eos % (Auto) 1.9 (0.8-7.0) Baso % (Auto) 0.5 (0.1-1.2) % Neut # (Auto) 4.31 (1.78-5.38) K/mm3 Lymph # (Auto) 1.35 (1.32-3.57) K/mm3 Stone # (Auto) 1.54 H (0.30-0.82) K/mm3 Eos # (Auto) 0.14 (0.04-0.54) K/mm3 Baso # (Auto) 0.04 (0.01-0.08) K/mm3 Manual Slide Review Abnormal smear Sodium 139 (136-145) mEq/L Potassium 3.8 (3.5-5.1) mEq/L Chloride 102 (98-107) mEq/L Carbon Dioxide 30 (21-32) mEq/L Anion Gap 10.8 (5-15) BUN 11 (7-18) mg/dL Creatinine 1.1 (0.7-1.3) mg/dL Est Cr Clr Drug Dosing 74.65 mL/min Estimated GFR (MDRD) > 60 (>60) mL/min BUN/Creatinine Ratio 10.0 L (14-18) Glucose 108 (80-115) mg/dL Calcium 8.4 L (8.5-10.1) mg/dL Total Bilirubin 1.0 (0.2-1.0) mg/dL AST 17 (15-37) U/L ALT 25 (16-63) U/L Alkaline Phosphatase 61 (46-116) U/L Total Protein 6.7 (6.4-8.2) g/dl Albumin 3.3 L (3.4-5.0) g/dl Globulin 3.4 gm/dL Albumin/Globulin Ratio 1.0 (1-2) Meds: Medications Generic Name Dose Route Start Last Admin Trade Name Freq PRN Reason Stop Dose Admin Sodium Chloride 10 ml 04/05/20 16:18 04/05/20 16:32 Saline Flush FLUSH 10 ml ONETIME PRN Administration Keep Vein Open Discontinued Medications Generic Name Dose Route Start Last Admin Trade Name Freq PRN Reason Stop Dose Admin Diatrizoate Meglum/Diatrizoate Sod 90 ml 04/05/20 16:17 04/05/20 16:32 Gastrografin 37% PO 04/05/20 16:18 90 ml ONETIME ONE Administration Hyoscyamine 0.125 mg 05/30/20 13:23 04/05/20 13:38 Hyomax-Sl SL 04/05/20 13:24 0.125 mg ONETIME ONE Administration Lactated Ringer's 1,000 mls @ 999 mls/hr 04/05/20 13:23 04/05/20 13:37 Ringers, Lactated IV 04/05/20 14:23 999 mls/hr .BOLUS ONE Administration Lactated Ringer's 1,000 mls @ 999 mls/hr 04/05/20 14:40 04/05/20 14:55 Ringers, Lactated IV 04/05/20 15:40 999 mls/hr .BOLUS ONE Administration Iopamidol 100 ml 04/05/20 16:17 04/05/20 16:32 Isovue-300 (61%) IVPUSH 04/05/20 16:18 100 ml ONETIME ONE Administration Ondansetron HCl 4 mg 04/05/20 13:23 04/05/20 13:38 Zofran IVPUSH 04/05/20 13:24 4 mg ONETIME ONE Administration Ondansetron HCl 4 mg 04/05/20 15:11 04/05/20 15:17 Zofran IVPUSH 04/05/20 15:12 4 mg ONETIME ONE Administration - Re-Assessments/Exams Free Text/Narrative Re-Assessment/Exam: 04/05/20 17:20 Laboratory evaluation is really nonsuggestive as to what is causing his problems. His potassium is 3.8. Did get abdominal x-ray and to me it looks like gastroenteritis picture excepted was a little too dilated in places I had radiology look at this and they thought maybe he had an ileus and could not exclude a bowel obstruction and strongly recommended a CT. The radiologist did call me on this. Did proceed with a abdominal pelvic CT with IV and oral contrast the patient has received a total of 2 L of fluid before getting the IV contrast. Patient does feel little bit better right now I gave him some Levsin and he has had a couple doses of Zofran. CT report shows some mild thickening of the aguillon of the transverse and descending colon he does have diverticuli present and the pattern is suggestive of a mild diverticulitis. I did discuss the pros and cons of treating for diverticulitis with the patient and his spouse we considered waiting a couple of days and see how it goes but they prefer to go ahead and get started on antibiotics at this point. Departure - Departure Time of Disposition: 17:23 Disposition: Home, Self-Care 01 Clinical Impression: Gastroenteritis, Gastroenteritis, Diverticulitis - Discharge Information Referrals: Kobi Ramirez MD [Primary Care Provider] - Forms: ED Department Discharge Additional Instructions: Return to the emergency room with any questions problems or worsening symptoms. Take the medications as directed: You have been started on Cipro take 1 twice a day until all gone this is an antibiotic You have been started on metronidazole this is an antibiotic take 1 3 times a day until all gone You have been started on Levsin, take 1 every 4 hours as needed for bowel discomfort and cramps I have refilled your Zofran take 1 every 6 hours for the next 24 hours and then as needed thereafter. Try probiotics see if this helps with the diarrhea. Follow-up with Dr. Moon on Tuesday. Have your kidney function rechecked and I would recommend having a heart rhythm strip run to make sure you are not developing any QT prolongation. Sepsis Event Note - Evaluation Sepsis Screening Result: No Definite Risk - Focused Exam Vital Signs: Vital Signs Temp Pulse Resp BP Pulse Ox 04/05/20 12:24 36.1 C 64 18 145/95 H 98 Date Exam was Performed: 04/05/20 Time Exam was Performed: 17:20 - My Orders Last 24 Hours: My Active Orders 04/05/20 13:22 Abdomen 2V AP Flat Upright [CR] Stat 04/05/20 14:46 Abdomen Pelvis w Cont [CT] Stat 04/05/20 16:18 Sodium Chloride 0.9% [Saline Flush] 10 ml FLUSH ONETIME PRN - Assessment/Plan Last 24 Hours: My Active Orders 04/05/20 13:22 Abdomen 2V AP Flat Upright [CR] Stat 04/05/20 14:46 Abdomen Pelvis w Cont [CT] Stat 04/05/20 16:18 Sodium Chloride 0.9% [Saline Flush] 10 ml FLUSH ONETIME PRN
[2020-04-05] MEDS ORDERED: Hyoscyamine 0.125 MG Tab.SL SL ONE (13:23)
[2020-04-05] MEDS ORDERED: Ondansetron 4 MG/2 ML SDV IVPUSH ONE ×2 (13:23→15:11)
[2020-04-05] MEDS ORDERED: Lactated Ringers 1,000 ML IV ONE ×2 (13:23→14:40)
[2020-04-05] MEDS ORDERED: Iopamidol 612 MG/ML 100 ML Bottle IVPUSH ONE (16:17)
[2020-04-05] MEDS ORDERED: Diatrizoate Meglumine/Diatrizoate Sodium 37% 120 ML Bottle PO ONE (16:17)
[2020-04-05] MEDS ORDERED: Sodium Chloride 0.9% 10 ML Syringe FLUSH PRN (16:18)
[2020-04-05] MEDS ORDERED: Hyoscyamine 0.125 MG Tab.SL SL STA (17:33)
[2020-04-05 17:46] VITALS: BP 142/74; PULSE 80
--- NOTE | 2020-04-07 06:41 | CR ---
Abdomen: Supine and upright views of the abdomen were obtained. Comparison: No prior abdominal imaging is available. Slightly prominent loops of small bowel gas are noted. Findings suggest possibility of small bowel ileus. Gas is also noted within portions of the transverse colon. No free air is seen. Left basilar atelectasis is noted. Bony structures are unremarkable. Impression: 1. Probable small bowel ileus. 2. Left basilar atelectasis. Diagnostic code #3 This report was dictated in MDT I agree with preliminary report from [facility], finalized on 04/05/20, 3:39 PM [place] Daylight Time
--- NOTE | 2020-04-07 06:42 | CT ---
CT abdomen and pelvis Technique: Multiple axial sections were obtained from above the dome of the diaphragm inferiorly through the pubic symphysis. Intravenous contrast was utilized. Oral contrast has also been given. Findings: Diverticuli are seen within the sigmoid colon. Bowel wall thickening is noted throughout the colon compatible with colitis. The visualised lung bases show nothing acute. Liver contains no focal parenchymal abnormality. Spleen appears within normal limits. Adrenal glands show no nodule. Pancreas is normal. Gallbladder contains no calcified gallstones. Kidneys show symmetric contrast enhancement without hydronephrosis or mass. Parapelvic cysts are noted within both kidneys. Aorta shows atherosclerotic calcification. No aneurysm is seen. No retroperitoneal adenopathy or mesenteric abnormalities are seen. There is an appendicolith seen at the tip of the appendix. Appendix shows no dilatation or inflammatory change. Nothing seen to indicate appendicitis. No pelvic mass or adenopathy is seen. No free fluid or inflammatory change is seen. No bowel dilatation is seen. Contrast is noted throughout a large portion of small bowel. Delayed images show contrast within the distal ureters and within the bladder. Impression: 1. Bowel wall thickening throughout the colon compatible with colitis. 2. Diverticuli within the sigmoid colon. 3. No other acute finding is appreciated on CT study of the abdomen and pelvis. Diagnostic code #3 This report was dictated in MDT I agree with preliminary report from [facility], finalized on 04/05/20, 5:52 PM [place] Daylight Time
== END 2020-04-05 17:40 | disposition home or self-care (01) ==
LOC: JD.ED 11:57
DX: K52.9 Noninfective gastroenteritis and colitis, unspecified (principal); K57.32 Diverticulitis of large intestine without perforation or abscess without bleeding; I25.10 Atherosclerotic heart disease of native coronary artery without angina pectoris; E78.00 Pure hypercholesterolemia, unspecified; I10 Essential (primary) hypertension; I25.2 Old myocardial infarction; K21.9 Gastro-esophageal reflux disease without esophagitis; E66.9 Obesity, unspecified; Z68.33 Body mass index [BMI] 33.0-33.9, adult; Z79.82 Long term (current) use of aspirin; Z79.02 Long term (current) use of antithrombotics/antiplatelets; Z79.899 Other long term (current) drug therapy; Z87.891 Personal history of nicotine dependence
CPT/HCPCS: 36415; 74019; 74177; 80053; 85025; 96361; 96374; 96376; 99284; A9270; J2405; J7120; Q9963; Q9967

== ENCOUNTER 2021-11-21 06:35 | Emergency (ER) | payer MEDICARE, BC ==
[2021-11-21] MEDS ORDERED: Metoclopramide 10 MG/2 ML SDV IVPUSH ONE (09:09)
[2021-11-21] MEDS ORDERED: diphenhydrAMINE 50 MG/ML SDV IVPUSH ONE (09:09)
[2021-11-21] MEDS ORDERED: Lactated Ringers 1,000 ML IV SCH (09:30)
[2021-11-21 14:16] VITALS: BP 142/86; PULSE 91
[2021-11-21] MEDS ORDERED: Ondansetron 4 MG/2 ML SDV IVPUSH ONE (14:47)
== END 2021-11-21 15:16 | disposition home or self-care (01) ==
LOC: JD.ED 06:35
DX: R55 Syncope and collapse (principal); A08.4 Viral intestinal infection, unspecified; I25.10 Atherosclerotic heart disease of native coronary artery without angina pectoris; E78.00 Pure hypercholesterolemia, unspecified; I10 Essential (primary) hypertension; I25.2 Old myocardial infarction; K21.9 Gastro-esophageal reflux disease without esophagitis; R94.31 Abnormal electrocardiogram [ECG] [EKG]; E66.9 Obesity, unspecified; Z79.82 Long term (current) use of aspirin; Z79.02 Long term (current) use of antithrombotics/antiplatelets; Z79.899 Other long term (current) drug therapy; Z20.822 Contact with and (suspected) exposure to COVID-19
CPT/HCPCS: 36415; 71045; 80053; 82553; 83735; 83880; 84484; 85025; 85379; 85610; 86140; 93005; 96374; 96375; 99285; J1200; J2405; J2765; J7120; U0002; 93010; 99284

== ENCOUNTER 2024-06-21 05:23 | Emergency (ER) | payer MEDICARE, BC ==
[2024-06-21 05:52] VITALS: BP 183/95; PULSE 58
[2024-06-21] MEDS ORDERED: Sodium Chloride 0.9% 10 ML Syringe FLUSH PRN (05:53)
[2024-06-21] MEDS: Aspirin 81 MG Tab.Chew PO ONE (06:05)
[2024-06-21 06:06] LABS: BASOPHILS ABSOLUTE AUTO 0.1 K/mm3 (0.0-0.2); EOSINOPHILS ABSOLUTE AUTO 0.1 K/mm3 (0.0-0.4); EOSINOPHILS PERCENT AUTO 2.5 % (0.0-6.0); HEMATOCRIT 44.7 % (42.0-52.0); HEMOGLOBIN 15.4 gm/dl (14.0-18.0); IMMATURE GRAN ABSOLUTE AUTO 0.03 K/mm3 (0.00-0.05); IMMATURE GRAN PERCENT AUTO 0.6 % (0.0-0.4); LYMPHOCYTES ABSOLUTE AUTO 1.5 K/mm3 (1.0-4.8); LYMPHOCYTES PERCENT AUTO 31.7 % (24.0-44.0); MEAN CORPUSCULAR HGB CONC 34.5 g/dl (32.0-36.0); MEAN CORPUSCULAR VOLUME 87.1 fl (83.0-99.0); MEAN PLATELET VOLUME 9.6 fl (9.4-12.4); MONOCYTES ABSOLUTE AUTO 0.6 K/mm3 (0.0-0.8); MONOCYTES PERCENT AUTO 12.3 % (0.0-8.0); NEUTROPHILS ABSOLUTE AUTO 2.5 K/mm3 (1.8-7.7); NEUTROPHILS PERCENT AUTO 51.9 % (41.0-71.0); PLATELET COUNT,PLT 179 K/mm3 (150-400); RED BLOOD CELL COUNT 5.13 M/mm3 (4.52-5.90); WHITE BLOOD CELL COUNT,WBC 4.86 K/mm3 (3.9-11.3)
[2024-06-21 06:23] LABS: A/G RATIO 1.2 (1-2); ALBUMIN 4.1 g/dl (3.4-5.0); BILIRUBIN TOTAL 0.8 mg/dL (0.2-1.0); BUN/CREATININE RATIO 10.8 (14-18); CALCIUM 8.9 mg/dL (8.5-10.1); CREATININE 1.2 mg/dL (0.7-1.3); EST CRCL DRUG DOSING (CG) 64.73 mL/min; MAGNESIUM 1.8 mg/dL (1.8-2.4); PROTEIN TOTAL,TP 7.5 g/dl (6.4-8.2)
== END 2024-06-21 10:12 | disposition home or self-care (01) ==
LOC: JD.ED 05:23
DX: R07.89 Other chest pain (principal); I25.10 Atherosclerotic heart disease of native coronary artery without angina pectoris; I10 Essential (primary) hypertension; K21.9 Gastro-esophageal reflux disease without esophagitis; E66.9 Obesity, unspecified; Z68.34 Body mass index [BMI] 34.0-34.9, adult; Z79.899 Other long term (current) drug therapy
CPT/HCPCS: 36415; 71045; 80053; 83690; 83735; 84484; 85025; 93005; 99285; A9270

== ENCOUNTER 2025-10-16 14:50 | Emergency (ER) | payer MEDICARE, BC ==
[2025-10-16] MEDS ORDERED: Naloxone 0.4 MG/ML SDV IVPUSH PRN (17:19)
[2025-10-16] MEDS: fentaNYL 100 MCG/2 ML SDV IVPUSH ONE (17:31)
[2025-10-16 19:15] VITALS: BP 124/92; PULSE 64
== END 2025-10-16 17:40 | disposition home or self-care (01) ==
LOC: JD.ED 14:50 → SUPCPDRO 14:50 → JD.ED 17:40
DX: M54.50 Low back pain, unspecified (principal); I10 Essential (primary) hypertension; E78.00 Pure hypercholesterolemia, unspecified; I25.2 Old myocardial infarction; Z95.5 Presence of coronary angioplasty implant and graft; Z79.01 Long term (current) use of anticoagulants; Z79.899 Other long term (current) drug therapy
CPT/HCPCS: 72131; 72192; 96374; 99284; J3010